=== PATIENT | female | born 1990 | race Caucasian/White ===

== ENCOUNTER 2024-09-28 12:12 | Outpatient (CLI) | payer MEDICAID, SELFPAY ==
--- NOTE | 2024-09-28 12:15 | CRLHL7_ITS ---
For Patients: As a result of the Century Cures Act, medical imaging exams and procedure reports are released immediately into your electronic medical record. You may view this report before your referring provider. If you have questions, please contact your health care provider. INDICATION: dating and viability COMPARISON: none TECHNIQUE: Real time hernandez scale imaging of the fetus was performed. FINDINGS: Sonographic imaging demonstrates a single living intrauterine gestation. Fetus demonstrates a regular cardiac rate of 139 beats per minute. Fetus has a variable position. The placenta lies posteriorly. Amniotic fluid volume appears normal. Single deepest vertical pocket: 4.5 cm. The composite ultrasound gestational age is calculated at 17 weeks 0 days with an estimated sonographic due date of 03/08/2025. The estimated weight is 177 grams which lies at the 43rd %. The following biometric measurements were obtained: Biparietal diameter: 3.6 cm/17 weeks 0 days 46th% Head circumference: 13.3 cm/16 weeks 6 days 33rd% Abdominal circumference: 11.1 cm/17 weeks 0 days 48th% Femur length: 2.3 cm/17 weeks 0 days 47th% The HC/AC ratio measures: 1.20 range (1.07-1.29) IMPRESSION: Sonographic gestational age 17 weeks 0 days and a sonographic due date 03/08/2025. Dictated by Yossi Lawson MD @ 09/30/2024 6:43:46 AM (Electronically Signed)
== END 2024-09-28 12:13 | disposition home or self-care (01) ==
LOC: US 12:14
PROVIDERS: PCP Registered Nurse; Visit Provider Registered Nurse
DX: Z34.92 Encounter for supervision of normal pregnancy, unspecified, second trimester (principal); Z3A.17 17 weeks gestation of pregnancy
CPT/HCPCS: 76815; 80306; 83021; 86592; 86593; 86703; 86704; 86706; 86762; 86780; 86787; 86803; 86850; 86900; 86901; 87086; 87340; 87491; 87591

== ENCOUNTER 2024-10-19 12:07 | Outpatient (CLI) | payer MEDICAID, SELFPAY ==
--- NOTE | 2024-10-19 12:15 | CRLHL7_ITS ---
For Patients: As a result of the Century Cures Act, medical imaging exams and procedure reports are released immediately into your electronic medical record. You may view this report before your referring provider. If you have questions, please contact your health care provider. OB ULTRASOUND LMP: 06/01/2024. MAYE by LMP: 03/08/2025. GA: 20 w, 0 d. INDICATION: anatomy. TECHNIQUE: Real time grayscale imaging of the fetus was performed. Evaluate anatomy. Transabdominal and transvaginal. position: Multiple positions. Cervix: Visualized. Technique: Transabdominal, thought best visualized transvaginal. Length of closed cervix: 6.0 cm. Placenta/cord: Posterior. Technique: Transvaginal. Placenta tip to internal OS: 1.1 cm. Umbilical Cord: 3-vessel cord. Placenta insertion: Central. Amniotic Fluid: 5.0 cm SDP (greater than/equal to: 2- less than 8 cm). SURVEY: Observed Structures. Calvarium/Spine: Cerebellum: 2.1 cm, 20 w 6 d. Cisterna Magna: 3.1 mm. Nuchal Fold: 3.0 mm. Lateral Ventricle: 4.6 mm. CSP: Yes. Midline Falx: Yes. Choroid Plexus: Yes. Spine: Yes. Abdomen: Stomach: Yes. Abd Cord Insertion: Yes. Urinary Bladder: Yes. Kidneys: Yes. Diaphragm: Yes. Face: Nose/lips: Yes. Orbital view: Yes. Profile: Yes. Limbs: Upper Extremities: Yes. Lower Extremities: Yes. Hands: Yes. Feet: Yes. Vascular: 4-Chamber Heart: Yes. LVOT: Yes. RVOT: Yes. 3VV: Yes. 3VTV: Yes. BPD: 4.6 cm. 19 w, 6 d, 44.5 percent. HC: 17.0 cm. 19 w, 4 d, 24.8 percent. AC: 14.8 cm. 20 w, 0 d, 45.6 percent. FL: 3.3 cm. 20 w, 1 d, 50.0 percent. FL/AC ratio: 22.15 percent. HC/AC ratio: 1.15. heart rate: 145 bpm. age by this US: 20 w, 1 d. MAYE by this US: 03/07/2025. EFW: 329.78 g. Weight: 0 lbs, 12 oz. Percentile by MAYE: 48.9 percent. IMPRESSION: 1. Concordance of clinical and sonographic dating. 2. Incomplete evaluation of situs. Remainder of the anatomic survey is normal. Short-term follow-up recommended. 3. The posterior placental edge is located 1.1 cm from the internal cervical os with transvaginal imaging. Third trimester follow-up recommended. Yossi Lawson M.D. Diagnostic Radiologist [email or web address] JOYA/[email or web address] nunn/Dictated by: Yossi Lawson MD @ 10/19/2024 1:38:00 PM (Electronically Signed)
== END 2024-10-19 12:08 | disposition home or self-care (01) ==
LOC: US 12:07
PROVIDERS: PCP Registered Nurse; Visit Provider Registered Nurse
DX: Z34.92 Encounter for supervision of normal pregnancy, unspecified, second trimester (principal); Z3A.20 20 weeks gestation of pregnancy
CPT/HCPCS: 76805; 76817

== ENCOUNTER 2024-12-14 10:05 | Outpatient (CLI) | payer BC, SELFPAY ==
--- NOTE | 2024-12-14 10:15 | CRLHL7_ITS ---
For Patients: As a result of the Century Cures Act, medical imaging exams and procedure reports are released immediately into your electronic medical record. You may view this report before your referring provider. If you have questions, please contact your health care provider. OB ULTRASOUND MAYE by LMP: 03/08/2025. GA: 28 w, 0 d. Single. Comparison: 10/19/2024, 09/28/2024. INDICATION: Low-lying placenta. Situs. Growth. TECHNIQUE: Real time grayscale imaging of the fetus was performed. Transabdominal. CERVIX: Visualized. Measurement: 3.6 cm. POSITIONING: Vertex. AMNIOTIC FLUID: 4.8 cm. SDP (N: greater than 2 x 1 cm) PLACENTA: Technique: Transabdominal. PLACENTA POSITION: Posterior. DOPPLER: heart rate: 144 bpm. BIOMETRY: BPD: 7.0 cm. 28 w, 1 d, 44.6 percent. HC: 25.7 cm. 28 w, 0 d, 19.0 percent. AC: 24.6 cm. 28 w, 6 d, 67.4 percent. FL: 5.4 cm. 28 w, 3 d, 48.6 percent. FL/AC ratio: 21.86 percent. HC/AC ratio: 1.05. EFW: 1248 g. Weight: 2 lbs, 12 oz. age by this US: 28 w, 3 d. MAYE by this US: 03/05/2025. Percentile by MAYE: 59.6 percent. IMPRESSION: 1. Sonographic gestational age 28 weeks 3 days and sonographic due date 03/05/2025. Good correlation with dates. Normal interval growth. 2. Estimated weight 60th percentile. Abdominal circumference 67th percentile. 3. Posterior placenta edge is located more than 10 cm from the internal cervical os. Yossi Lawson M.D. Diagnostic Radiologist [email or web address] JOYA/[email or web address] nunn/Dictated by: Yossi Lawson MD @ 12/14/2024 1:02:00 PM (Electronically Signed)
== END 2024-12-14 10:06 | disposition home or self-care (01) ==
LOC: US 10:06
PROVIDERS: PCP Registered Nurse; Visit Provider Advanced Practice Midwife
DX: O44.43 Low lying placenta NOS or without hemorrhage, third trimester (principal); Z3A.28 28 weeks gestation of pregnancy
CPT/HCPCS: 76816; 86592

== ENCOUNTER 2025-01-28 12:22 | Outpatient (CLI) | payer BC, SELFPAY ==
--- NOTE | 2025-01-28 12:15 | CRLHL7_ITS ---
For Patients: As a result of the Century Cures Act, medical imaging exams and procedure reports are released immediately into your electronic medical record. You may view this report before your referring provider. If you have questions, please contact your health care provider. OB ULTRASOUND FOLLOW-UP/LIMITED, 01/28/2025 CLINICAL HISTORY: Follow-up growth. COMPARISON: 12/14/2024, 10/19/2024. TECHNIQUE: Real time hernandez scale imaging of the fetus was performed. Transabdominal imaging performed. FINDINGS: LMP: 06/01/2024. MAYE by LMP: 03/08/2025. GA: 34 weeks 3 days. Gestation: Single. Cervix: Not visualized. Positioning: Vertex. Amniotic Fluid: 5.4 cm SDP. Placenta: Technique: TA. Placenta position: Posterior. Dopplers: heart rate: 137 bpm. BIOMETRY: BPD: 8.9 cm, 36 weeks 0 days. 88% HC: 31.8 cm, 35 weeks 6 days. 50% AC: 31.3 cm, 35 weeks 1 day. 77% FL: 6.5 cm, 33 weeks 4 days. 20% FL/AC Ratio: 20.82% HC/AC Ratio: 1.02. EFW: 2546 grams, 5 lb 10 oz. age by this US: 35 weeks 1 day. MAYE by this US: 03/03/2025. Percentile by MAYE: 60% IMPRESSION: 1. Sonographic gestational age 35 weeks 1 day and sonographic due date 03/03/2025. Good correlation with dates. Normal interval growth. 2. Estimated weight 60th percentile. Abdominal circumference 77th percentile. Yossi Lawson M.D. Diagnostic Radiologist [email or web address] Transcribed: 3:25 pm DW/Dictated by: Yossi Lawson MD @ 01/28/2025 2:24:00 PM (Electronically Signed)
--- OUTSIDE RECORDS SUMMARY | 2025-01-29 01:27 | XMS_ITS | Clinical Summary ---
Author Organization [facility] Address [address] [place] [id number] Care Team Providers Care Case Resource Manager Name Role Phone No Ref-Primary, Physician Primary Care Provider No Ref-Primary, Physician Unavailable [phone] Allergies No known active allergies Medications hydrocortisone (CORTAID) 1 % cream Apply topically 2 times daily 30 g 0 5 Active diphenhydrAMINE (BENADRYL) 25 MG tablet Take 1-2 tablets (25-50 mg) by mouth every 6 hours as needed for itching 30 tablet 0 5 Active calamine lotion Apply topically as needed for itching 75 mL 1 5 Active Vit-Fe Fumarate-FA ( MULTIVITAMIN W/IRON) 27-0.8 MG tablet Take 1 tablet by mouth daily Active oxyCODONE (ROXICODONE) 5 MG tablet Take 1 tablet (5 mg) by mouth every 6 hours as needed for severe pain 10 tablet 2 Active Active Problems Problem Noted Date Diagnosed Date Encounter for triage in patient 022 Appendicitis 09/24/2014 (spontaneous vaginal delivery) 06/22/2014 Flu 06/21/2014 Indication for care in labor or delivery 014 Group B Streptococcus sweetie r, +RV culture, currently 06/20/2014 Supervision of normal first 01/04/2014 Social History Tobacco Use Types Packs/Day Years Used Date Smoking Tobacco: Never Smokeless Tobacco: Never Alcohol Use Standard Drinks/Week Comments No 0 (1 standard drink = 0.6 oz pur e alcohol) Adolescent Education Answer Date Record ed Getting School Help Needed Not on file 04/29 Comments No Sex and Gender Information Value Date Recorded Sex Assigned at Not on file 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 Gender Identity Not on file Sexual Orientation Not on file Occupation Industry Job Start Date Job End Date Not on file Not on file Not on file Not on file Last Filed Vital Signs Vital Sign Reading Time Taken Comments Blood Pressure 130/81 04/13/2022 11:35 PM CDT Pulse 68 04/13/2022 11:35 PM CDT Temperature 36.4 C (97.5 F) 04/13/2022 11:35 PM CDT Respiratory Rate 18 04/13/2022 11:35 PM CDT Oxygen Saturation 97% 04/13/2022 11:35 PM CDT Inhaled Oxygen Concentration - - Weight 117 kg (258 lb) 04/13/2022 11:35 PM CDT Height 165.1 cm (5' 5) 11/09/2021 1:08 PM CDT Body Mass Index 42.93 11/09/2021 1:08 PM CDT Plan of Treatment Health Maintenance Due Date Last Done Comments ADVANCE CARE PLANNING 1992 ANNUAL REVIEW OF HM ORDERS 1992 YEARLY PREVENTIVE VISIT 11/22/1995 HEPATITIS C SCREENING 2010 HEPATITIS B VACCINE (1 of 3 - 19+ 3-dose series) 11/22/2011 DTAP/TDAP/TD VACCINE (2 - Td or Tdap) 11/23/2015 11/22/2005 PAP 12/07/2016 12/07/2013 COVID-19 VACCINE (1 - 2023-2 5 season) 2024 PHQ-2 (once per calendar year) 2024 INFLUENZA VACCINE (Season Ended) 2025 ZOSTER VACCINE (1 of 2) 2042 HIV SCREENING Completed 11/13/2013 HPV VACCINE Aged Out No longer eligi ble based on patient's age to complete this topic MENINGITIS VACCINE Aged Out No longer eligible based on patient's age to complete this topic PNEUMOCOCCAL VACCINE: PEDIAT RICS (0 to 5 YEARS) AND AT-RISK PATIENTS (6 to 49 YEARS) Aged Out No longer eligi ble based on patient's age to complete this topic Procedures Procedure Name Priority Date/Time Associated Diagnosis Comments PAP IMAGED THIN LAYER SCREEN Routine 12/07/2013 12:00 AM CDT Routine gynecological examination Supervision of normal first , first trimester HIV ANTIGEN ANTIBODY COMBO Routine 11/13/2013 11:57 AM CDT Supervision of normal first , unspecified trimester from Last 3 Months or Most Recently Relevant to Health Maintenance Results * PAP imaged thin layer, screen (12/07/2013 12:00 AM CDT) PAP SAM Cho Report Patient Name: ABI GUAMAN MR#: [id number] Specimen #: [id number] Collected: 12/07/2013 Received: 12/10/2013 Reported: 12/11/2013 11:40 Ordering Phy(s): HERBIE JENKINS SPECIMEN/STAIN PROCESS: Pap imaged thin layer prep screening (Surepath, FocalPoint with guided screening) Pap-Cyto x 1, Reflex HPV if ASCUS/LSIL x 1 SOURCE: Cervical Pap imaged thin layer prep screening (Surepath, FocalPoint with guided screening) SPECIMEN ADEQUACY: Satisfactory for evaluation. -Transformation zone component absent. CYTOLOGIC INTERPRETATION: Negative for Intraepithelial Lesion or Malignancy Electronically signed out by: DWAYNE Childs (ASCP) Processed and screened at [facility], [facility] CLINICAL HISTORY: LMP: 09/19/13 , Papanicolaou Test Limitations: Cervical cytology is a screening test with limited sensitivity; regular screening is critical for cancer prevention; Pap tests are primarily effective for the diagnosis/preventi on of squamous cell carcinoma, not adenocarcinomas or other cancers. TESTING LAB LOCATION: [address] [address] COLLECTION SITE: Client: [facility] Location: [facility] (R) Cytologic material (specimen) 12/07/2013 12/10/2013 10:41 AM CDT us Herbie Jenkins MD LAB - OPTIME CLINICAL SPECI MEN Final Result COPATH * HIV Antigen Antibody Combo (11/13/2013 11:57 AM CDT) HIV Antigen Antibody Combo Nonreactive HIV-1 p24 Ag & HIV-1/HIV-2 Ab Not Detected NR [facility] Blood specimen (specimen) 11/13/2013 11:57 AM CDT 11/13/2013 12:02 PM CDT us Herbie Jenkins MD LAB - BLOOD ORDERABLES Tiffany l Result Performing Organization Address City/[facility]/ZIP Co de Phone Number [facility] [address] [place] [address] from Last 3 Months or Most Recently Relevant to Health Maintenance Insurance [facility] Advance Directives For more information, please contact: [phone] * Full Code (Latest Code Status on File) Date Activated Date Inactivated Comments 09/24/2014 3:44 AM 09/24/2014 4:12 PM Care Teams Case Resource Manager Relationship Specialty Start Date End Date No Ref-Primary, Physician PCP - General 04/14/22 No Ref-Primary, Physician 04/14/22
--- OUTSIDE RECORDS SUMMARY | 2025-01-29 01:27 | XMS_ITS | Clinical Summary ---
Author Organization [facility] Address [address] [address] Care Team Providers Care Pulpwood Contractor Name Role Phone Unavailable Primary Care Provider Unavailabl e Source Comments You are receiving this document as you are listed as the primary care provider,follow-up provider, or the patient has been referred to you for consultation.This is in compliance with the Medicare and[facility] EHR Incentive Program,which states Providers who transition their patient to another setting of careor provider of care or refers their patient to another provider of care shouldprovide summary care record for each transition of care or referral. 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 Gender Identity Not on file Sexual Orientation Not on file Last Filed Vital Signs Vital Sign Reading Time Taken Comments Blood Pressure 114/64 09/12/2018 10:08 AM LIVESTOCK LABORER Pulse 65 09/12/2018 10:08 AM LIVESTOCK LABORER Temperature - - Respiratory Rate - - Oxygen Saturation - - Inhaled Oxygen Concentration - - Weight - - Height - - Body Mass Index - - Plan of Treatment Health Maintenance Due Date Last Done Comments Cervical Cancer Screening Due 1992 Hep C Screening (Preventive Services) 1992 HIV Screening (Preventive Services) 2008 Adult Preventive Visit 2010 DTaP/Tdap/Td Vaccine (1 - Tdap) 11/22/2011 HepB Vaccine (1) 11/22/2011 COVID-19 Vaccine ( - 2023-2 5 season) 2024 Influenza Vaccine (Season Ended) 2025 Zoster/Shingles Vaccine (1 of 2) 2042 HPV Vaccine Aged Out No longer eligi ble based on patient's age to complete this topic HepA Vaccine Aged Out No longer eligi ble based on patient's age to complete this topic Hib Vaccine Aged Out No longer eligi ble based on patient's age to complete this topic IPV (Polio) Vaccine Aged Out No longe r eligible based on patient's age to complete this topic MCV4 Vaccine Aged Out No longer eligi ble based on patient's age to complete this topic Meningococcal B Vaccine Aged Out No l onger eligible based on patient's age to complete this topic Pneumococcal Vaccine Aged Out No long er eligible based on patient's age to complete this topic Insurance [employer]ED [employer]
--- OUTSIDE RECORDS SUMMARY | 2025-01-29 01:27 | XMS_ITS | Clinical Summary ---
Author Organization [facility] Address [address] [place] [address] Care Team Providers Care Schedule Checker Name Role Phone Pcp, No Primary Care Provider Unavailabl e Allergies Active Allergy Reactions Criticality Noted Date Comments Tuberculin Ppd Edema 05/10/2016 Medications methylPREDNISolo ne (MEDROL, GARIMA,) 4 mg tabletIndication s:Benign positional vertigo, unspecified laterality Take by mouth as instructed per packaging. 1 Package 1 6 Active cephalexin (KEFLEX) 500 mg capsule TAKE 1 CAPSULE BY MOUTH THREE TIMES A DAY 2 Active ibuprofen (ADVIL; MOTRIN) 600 mg tablet Take 600 mg by mouth every 6 hours if needed. 2 Active Active Problems No known active problems Immunizations Immunization Administration Dates Next Due Tdap 11/22/2005 Family History Medical History Relation Name Comments Good Health Brother 1 Good Health Brother 2 Good Health Father Good Health Mother Good Health Sister 1 Good Health Sister 2 Good Health Sister 3 Relation Name Status Comments Brother 1 Brother 2 Father Alive Mother Alive Sister 1 Sister 2 Sister 3 Social History Tobacco Use Types Packs/Day Years Used Date Smoking Tobacco: Never Smokeless Tobacco: Never Alcohol Use Standard Drinks/Week Comments Yes 0 (1 standard drink = 0.6 oz pur e alcohol) Social Connections Answer Date Recorded Frequency of Communication with Friends and Fami ly Not on file 02/09/2022 Comments No Sex and Gender Information Value Date Recorded Sex Assigned at Not on file Legal Sex Female 2:17 PM CDT Gender Identity Not on file Sexual Orientation Not on file Obstetrics History Last Filed Vital Signs Vital Sign Reading Time Taken Comments Blood Pressure 121/79 02/05/2022 5:05 PM CDT Pulse 96 02/05/2022 5:05 PM CDT Temperature 37 C (98.6 F) 02/05/2022 5:05 PM CDT Respiratory Rate - - Oxygen Saturation - - Inhaled Oxygen Concentration - - Weight 96.2 kg (212 lb) 05/10/2016 10:10 AM CDT Height 167.6 cm (5' 5.98) 05/10/2016 10:10 AM C DT Body Mass Index 34.23 05/10/2016 10:10 AM CDT Plan of Treatment Health Maintenance Due Date Last Done Comments HIV for age 15-65 11/22/2007 Hepatitis C screening for ag e 18-79 2010 Hepatitis B series for 19+ ( 1 of 3 - 19+ 3-dose series) 11/22/2011 Tetanus booster 11/23/2015 11/22/2005 BMI (ht and wt on same day) for age 18+ 05/10/2017 05/10/2016 Depression screening for age 12+ 05/10/2017 05/10/2016 COVID-19 vaccine series ( season) 2024 Pap test for age 21-65 09/11/2024 2, 09/11/2021 Influenza Vaccine (Season Ended) 2025 Tdap Completed 11/22/2005 Pneumococcal series for age 6-49 Aged Out No longer eligible b ased on patient's age to complete this topic Procedures Procedure Name Priority Date/Time Associated Diagnosis Comments APPRENTICE ARCHITECT THIN PREP PAP SCREEN IMAGED Routine 09/11/2021 4:00 PM LOADING MANAGER from Last 3 Months or Most Recently Relevant to Health Maintenance Results * APPRENTICE ARCHITECT THIN PREP PAP SCREEN IMAGED (09/11/2021 4:00 PM LOADING MANAGER) Case Report Gynecologic Cytology Report Case: [id number] Authorizing Provider: Destini Bah NP Collected: 09/11/2021 1600 Ordering Location: [facility] Received: 09/15/2021 0803 First Screen: Karen Gongora Specimen: APPRENTICE ARCHITECT ThinPrep Vial Screening, Cervical/Vaginal 09/21/2021 12:58 PM LOADING MANAGER [facility] INTERPRETATION/ RESULT NEGATIVE FOR INTRAEPITHELIAL LESION OR MALIGNANCY (NIL) (none) 09/21/2021 12:[address] [facility] at 1258 LOADING MANAGER ORGANISM(S) Shift in billie suggestive of bacterial vaginosis 09/21/2021 12:58 PM LOADING MANAGER [facility] SPECIMEN ADEQUACY Satisfactory for evaluation No endocervical component seen in a patient 09/21/2021 12:58 PM LOADING MANAGER [facility] HPV REQUEST HPV and PAP 09/21/2021 12:58 PM LOADING MANAGER [facility] Date of LMP 09/21/2021 12:58 PM LOADING MANAGER [facility] Comment:Unknown Last Pap Date 09/21/2021 12:58 PM LOADING MANAGER [facility] Comment:Unknown Menstrual Status 09/21/2021 12:58 PM LOADING MANAGER [facility] Additional Information 09/21/2021 12:58 PM LOADING MANAGER [facility] Comment: Interpreted at [facility] - [address] [facility] [address], [place] [address] Automated Review Successful 09/21/2021 12:[address] [facility] Comment:Specimen processed s uccessfully by automated music executive device, ThinPrep Imaging System, [employer] ANCILLARY TESTING APPRENTICE ARCHITECT HPV Ordered, Please see separate report 09/21/2021 12:58 PM [facility] Note The pap test is a screening technique, not a diagnostic procedure. It is used primarily to screen for squamous cancers and precursor lesions. Published studies have shown that it is subject to both false negative and false positive results. The pap test should not be used as the sole means to diagnose or exclude pre-malignant and malignant lesions. 09/21/2021 12:58 PM [facility] Other (Cervical/Vagina l) 09/11/2021 4:00 PM LOADING MANAGER 09/15/2021 8:03 AM LOADING MANAGER Destini Bah NP PATHOLOGY/CYTOLOGY Final Result [facility] [address] [place] [address], from Last 3 Months or Most Recently Relevant to Health Maintenance Insurance [facility] Care Teams Schedule Checker Relationship Specialty Start Date End Date Pcp, No . PCP - General 10/24/13
== END 2025-01-28 12:23 | disposition home or self-care (01) ==
LOC: US 12:23
PROVIDERS: PCP Registered Nurse; Visit Provider Advanced Practice Midwife
DX: O99.213 Obesity complicating pregnancy, third trimester (principal); Z3A.34 34 weeks gestation of pregnancy
CPT/HCPCS: 76816

== ENCOUNTER 2025-02-13 13:44 | Outpatient (CLI) | payer BC, SELFPAY | END 2025-02-13 13:45 | disposition home or self-care (01) | LOC: NFLDREF 02-17 07:28 | PROVIDERS: PCP Registered Nurse; Referring Provider Registered Nurse; Visit Provider Midwife | DX: Z34.93 Encounter for supervision of normal pregnancy, unspecified, third trimester (principal); Z3A.36 36 weeks gestation of pregnancy | CPT/HCPCS: 87081; 87653 ==

== ENCOUNTER 2025-02-27 10:08 | Outpatient (CLI) | payer BC, SELFPAY ==
--- NOTE | 2025-02-27 10:15 | CRLHL7_ITS ---
For Patients: As a result of the Century Cures Act, medical imaging exams and procedure reports are released immediately into your electronic medical record. You may view this report before your referring provider. If you have questions, please contact your health care provider. INDICATION: Third trimester growth check. Obesity. TECHNIQUE: Ultrasound OB pelvis transabdominal. Real-time hernandez-scale imaging of the fetus was performed without stress testing. COMPARISON: 12/14/2024 FINDINGS: Sonographic imaging demonstrates a single living intrauterine gestation. Fetus demonstrates a regular cardiac rate of 137 beats per minute. Fetus has a cephalic orientation. Placenta is posterior. Biometric measurements: Biparietal diameter: 36 weeks 0 days. Head circumference: 35 weeks 6 days. Abdominal circumference: 35 weeks 1 day. Femur length: 33 weeks 4 days. Estimated weight: 2546, 59 %. Estimated ultrasound age by today`s measurements is 35 weeks 1 day with an estimated date of delivery March 03, 2025. Amniotic fluid volume appears normal with the deepest pocket of 5 cm. breathing movements, motion, and tone were all observed. IMPRESSION: Single viable intrauterine with a biophysical profile 8. Adequate interval growth has been demonstrated. Dictated by Obey Beth MD @ 03/04/2025 6:32:47 AM (Electronically Signed)
== END 2025-02-27 10:09 | disposition home or self-care (01) ==
LOC: US 10:08
PROVIDERS: PCP Registered Nurse; Visit Provider Advanced Practice Midwife
DX: O99.213 Obesity complicating pregnancy, third trimester (principal); Z3A.35 35 weeks gestation of pregnancy
CPT/HCPCS: 76819

== ENCOUNTER 2025-03-03 07:23 | Inpatient (IN) | payer BC, SELFPAY ==
[2025-03-03] VITALS (20 sets, daily range): BP systolic 109–130; BP diastolic 58–79; PULSE 68–96; RESP 14–18; TEMP 36.5–37; O2SAT 94–97; BMI 45.1
[2025-03-03] MEDS: AMPICILLIN 2 GM in 0.9 % SODIUM CHLORIDE Mini-bag 100 ML IVPB (08:04)
[2025-03-03] MEDS: LACTATED RINGERS 1000 ML 1,000 ML 125 ML IV (08:05)
[2025-03-03 08:12] LABS: Hematocrit* 32.7 % (33.0-51.0); Hemoglobin* 10.5 gm/dL (12.0-16.0); Immature Granulocytes Abs Auto 0.10 K/uL (0.00-0.30); Immature Granulocytes Pct Auto 1.3 %; Lymphocytes Absolute Auto 1.87 K/uL (0.90-2.90); Mean Corpuscular HGB Conc 32 gm/dL (32-36); Mean Corpuscular Hemoglobin 27 pg (26-34); Mean Corpuscular Volume 85 fL (80-100); RDW Coefficient of Variation % 13.5 % (11.5-15.5); Red Blood Count* 3.84 m/uL (4.00-5.20); White Blood Count* 7.99 K/uL (4.50-11.00)
[2025-03-03 08:14] LABS: Slide Review Reflex No
--- NOTE | 2025-03-03 10:39 | W.PM.LDBA ---
Subjective History of Present Illness Date Seen: 03/03/25 Narrative: Patient is being admitted to Labor and Delivery for elective IOL. She is a 34 year old at 39 2/7 weeks gestation. Her full history and physical was dictated by Stephanie GARCIA on 02/20/2025. Please see this for details. She is supported by [place] in the room. Good movement. No vaginal bleeding, leaking of fluid, or cramping. Specific Issues/Plans Patient goes by: Oliva Winkler 4 P 3003 : [place] Hep B indeterminate, confirm vaccinated at 24 week visit H&P done for labor admit 02/20/2025 by Gladis Ayala CNM # RPR positive with 1:1 titer. TPPA nonreactive = likely biological false positive, but could be a very early new case. Repeat TP-PA negative at 28wks=syphilis negative # BMI 39.6 Growth at 28wks: 60% Growth US at 32 weeks: scheduled for 34 wks Weekly testing starting at 37 weeks: testing worksheet completed 01/09/25 Consider elective delivery at week 39 #Late to care due to lack of medical insurance. 1st OB at 17 weeks. Utox: declined # H/o precipitous . RN delivered last baby in hospital bathroom. Last delivery occurred within 3 hours of ROM. [place] she wasn't listened to when she informed nurse that she delivers quickly. Very anxious about this and risk of car/home , consider reviewing this close to due date # PP hemorrhage w/ last delivery # Placenta Previa or Low-Lying Placenta, 1.1 cm from internal os Resolved (10.1cm from OS) Follow up transvaginal ultrasound at 28-32 weeks ? #Missing evaluation of situs of anatomy (position of organs). Normal. Recommend follow-up, short term: Normal situs (see US addendum) # GBS +-unsure if will treat H&P: [] Imagin10/19/2024 Anatomy US: IMPRESSION: 1. Concordance of clinical and sonographic dating. 2. Incomplete evaluation of situs. Remainder of the anatomic survey is normal. Short-term follow-up recommended. 3. The posterior placental edge is located 1.1 cm from the internal cervical os with transvaginal imaging. Third trimester follow-up recommended. Vaccinations: Flu: Recommended, declines Covid: Recommended, declines Tdap: offered at 32 weeks, patient would like to do research, ask again RSV: [] 32 week mental health: [] Last pap: September 2021 normal, negative HPV OB - Problem Based A/P Additional Plan (1) : Status: Acute (2) Encounter for elective induction of labor: Status: Acute (3) Obesity (BMI 30-39.9): Status: Acute Plan ASSESSMENT:?? 34 at 39 2/7 weeks gestation?? complicated by:??elevated BMI, late onset of care due to insurance issues Labor type: elective induced, early labor?? Category 1 FHR pattern.??? Labor complicated by:none GBS positive? PLAN:?? 1. Routine intrapartum cares as ordered. Options for ?induction reviewed. AROM is not currently an options due to risk for cord prolapse. Pt agrees to pitocin titration per protocol. 2. Monitoring per policy, intermittent?? 3. Planning unmedicated . Desires water . Consent signed. Hep C negative. Candidate for analgesia of choice.??? 4. Patient encouraged to reposition and ambulate to promote physiologic labor and .?? 5. GBS prophylaxis initiated for GBS positive status. Will treat with antibiotics per protocol.? 6. Anticipate ? OB Exam Physical Exam Vital signs: Temp Pulse Resp BP 98.6 F 70 14 125/74 03/03/25 07:40 03/03/25 09:45 03/03/25 07:40 03/03/25 07:40 Narrative: Vitals Reviewed Constitutional:? Alert and oriented x3 HEENT:? Normocephalic, atraumatic Neck:? Supple Lungs:? Clear to auscultation bilaterally Heart:? Regular rate and rhythm, no murmur, rub or gallop Abdomen:? Soft, nontender, and gravid. Vertex by Odin's, confirmed with cervical exam. Extremities:? No edema or erythema Cervix: 3 cm/50%/-3 station/vertex with palpable sutures, head ballotable NST: 130 bpm/moderate variability/accelerations present/decelerations absent/contractions none
[2025-03-03] MEDS: OXYTOCIN 30 unit/500 ML in NS 30 UNIT/500 ML BAG IVPB (11:07)
[2025-03-03] MEDS: AMPICILLIN 1 GM in 0.9 % SODIUM CHLORIDE Mini-bag 100 ML IVPB ×2 (12:37→16:29)
--- NOTE | 2025-03-03 15:10 | P.OBPN_ITS ---
Subjective Time Seen by Provider: 15:00 Date Seen: 03/03/25 Narrative: Patient was being admitted to Labor and Delivery for elective IOL. She is a 34 year old at 39 2/7 weeks gestation. She has been on pitocin and just starting to feel some cramping low and in front. No LOF. Good FM. No vaginal bleeding. Specific Issues/Plans Patient goes by: Oliva Winkler 4 P 3003 : [place] Hep B indeterminate, confirm vaccinated at 24 week visit H&P done for labor admit 02/20/2025 by Gladis Ayala CNM # RPR positive with 1:1 titer. TPPA nonreactive = likely biological false positive, but could be a very early new case. Repeat TP-PA negative at 28wks=syphilis negative # BMI 39.6 Growth at 28wks: 60% Growth US at 32 weeks: scheduled for 34 wks Weekly testing starting at 37 weeks: testing worksheet completed 01/09/25 Consider elective delivery at week 39 #Late to care due to lack of medical insurance. 1st OB at 17 weeks. Utox: declined # H/o precipitous . RN delivered last baby in hospital bathroom. Last delivery occurred within 3 hours of ROM. [place] she wasn't listened to when she informed nurse that she delivers quickly. Very anxious about this and risk of car/home , consider reviewing this close to due date # PP hemorrhage w/ last delivery # Placenta Previa or Low-Lying Placenta, 1.1 cm from internal os Resolved (10.1cm from OS) Follow up transvaginal ultrasound at 28-32 weeks ? #Missing evaluation of situs of anatomy (position of organs). Normal. Recommend follow-up, short term: Normal situs (see US addendum) # GBS +-unsure if will treat H&P: [] Imagin10/19/2024 Anatomy US: IMPRESSION: 1. Concordance of clinical and sonographic dating. 2. Incomplete evaluation of situs. Remainder of the anatomic survey is normal. Short-term follow-up recommended. 3. The posterior placental edge is located 1.1 cm from the internal cervical os with transvaginal imaging. Third trimester follow-up recommended. Vaccinations: Flu: Recommended, declines Covid: Recommended, declines Tdap: offered at 32 weeks, patient would like to do research, ask again RSV: [] 32 week mental health: [] Last pap: September 2021 normal, negative HPV Objective Exam: Objective: Constitutional: Alert and oriented x3, no distress, coping well Vital signs stable, see nurse documentation Abdomen: gravid, contractions palpate mild with contractions and soft between Cervix: 4 cm/75%/0 station/vertex with palpable sutures. Head well applied to ce rvix and engaged, not ballotable. AROM with consent, clear fluid, copious amount. NST: 120 bpm/moderate variability/accelerations present/decelerations absent/contractions q 1-3 min with some clustering in between prior to AROM Vital Signs: Last Vital Signs Temp 97.7 F 03/03/25 14:57 Pulse 84 03/03/25 14:57 Resp 14 03/03/25 12:35 BP 118/72 03/03/25 14:57 Pulse Ox 94 03/03/25 14:57 Plan Plan: ASSESSMENT:?? 34 at 39 2/7 weeks gestation?? complicated by:??elevated BMI, late onset of care due to insurance issues Labor type: elective induced, early labor?? Category 1 FHR pattern.??? Labor complicated by:none GBS positive? PLAN:?? 1. Routine intrapartum cares as ordered. Continue pitocin titration as indicated after AROM. 2. Monitoring per policy, intermittent?? 3. Planning unmedicated . Desires water . Consent signed. Hep C negative. Candidate for analgesia of choice.??? 4. Patient encouraged to reposition and ambulate to promote physiologic labor and .?? 5. GBS prophylaxis initiated for GBS positive status. Will treat with antibiotics per protocol.? 6. Anticipate ?
--- NOTE | 2025-03-03 19:25 | W.PM.VAGDE_ITS ---
OB Procedure Vag Delivery Mother Details Mother Details: The patient is a 34 year-old, 4, Para 3, admitted on 03/03/25 at 39 2/7 Days gestation. Weeks Gestation: 39.2 Admission Date: 03/03/25 Additional Details Amniotic Membrane Status: AROM Amniotic Membrane Rupture Date: 03/03/25 Amniotic Membrane Rupture Time: 15:03 Amniotic Membrane Fluid Description: Clear Analgesia/Anesthesia Type: None Waterbirth: Yes Pitcoin: Yes Intrapartal Events: None Induction Method: per pitocin protocol and AROM Labor Onset: 15:13 Complete: 18:48 Pushin:48 Heart: Category 2 with deep variables, moderate variability through out and rapid descent. Delivery Details Delivery Date: 03/03/25 Delivery Time: 18:50 Route of delivery: Infant Gender: Male Infant Viability: Alive; Heart Rate Present Position at Delivery: OP Delivery Details: Patient was admitted for elective IOL and progressed with pitocin and ARoM. AROM noted at 1503 with clear fluid. Patient was complete at 1848 and pushing at 1848. of a viable male at 1850 in sitting position in the tub. Vertex de livered straight OP. Nuchal cord x 2. Released after head breached the water carefully. Baby did take a gulp of water but drank it immediately and began vigorous crying. Body delivered easily without shoulder dystocia and without incident. Baby handed to dad to bring to his mum.Infant passed to mothers chest with a vigorous cry. Cord was clamped and cut at > 10 minutes. APGARS were 9 at one minute and 9 at five minutes respectively. Intact placenta with a 3 vessel cord delivered spontaneously at 1904. Fundus firm. No laceration identified. QBL 395 cc. Mother and baby stable; mother plans to breastfeed. Infant weight pending.? 1 Minute Interval Total Score: 9 5 Minute Interval Total Score: 9 Additional Details Shoulder Dystocia: No Placenta Delivery Time: 19:04 Placental Delivery Description: Spontaneous Procedure Done: Global Blood Loss: 395 Laceration: None Blood Loss Measurement Type: QBL Bakri Used: No Sponge/Need Count Correct: Yes Cord Vessel Description: 3 Vessels and Tight (x2) Event Summary Status: Mother and infant were stable after delivery. Disposition: floor
[2025-03-03] MEDS: miSOPROStoL 800 MCG/4 TABLET PR (19:59)
[2025-03-03] MEDS: OXYTOCIN 30 unit/500 ML in NS 30 UNIT/500 ML BAG 300 UNIT IVPB (21:23)
[2025-03-03] MEDS: METHYLERGONOVINE MALEATE 0.2 MG TABLET PO (21:26)
[2025-03-03] MEDS: IBUPROFEN 600 MG TABLET PO (21:45)
[2025-03-04 00:08] VITALS: BP 105/67; PULSE 78; RESP 16; TEMP 37; O2SAT 96
[2025-03-04 03:30] VITALS: BP 92/57; PULSE 75; RESP 16; TEMP 36.9; O2SAT 97
[2025-03-04] MEDS: METHYLERGONOVINE MALEATE 0.2 MG TABLET PO ×2 (05:58→14:06)
[2025-03-04 06:28] LABS: Hemoglobin* 10.5 gm/dL (12.0-16.0)
[2025-03-04] MEDS: IBUPROFEN 600 MG TABLET PO ×2 (07:32→14:06)
--- NOTE | 2025-03-04 07:46 | PM.OBPNVD1 ---
OB - PN:Subj Subjective Date Seen: 03/04/25 Narrative: Swathi is a 34 y.o. who was admitted to L & D for IOL. ?She had an uncomplicated NVD/waterbirth.?The patient feels well. ?The pain is well controlled with current medications. ?She has no new complaints. ?She is breast feeding and reports things are going ok so far. baby has latched a few times. Is currently trying to feed, but baby is sleepy. ? the patient has done well.? Vitals have been stable.? She has remained afebrile.? Has a good appetite, is tolerating a general diet. ?She is voiding without difficulty.? She is ambulating and denies any dizziness.? Has normal amount of rubra lochia. ?she has a h/o PPH, but thus far her bleeding is normal. She is unsure if she is wanting to go home today. She will see how it goes. This provider will check back later if she is desiring d/c today. Otherwise, plans to rest, and not expecting a lot of company today. OB - PN: Obj Exam Physical Exam: Vital signs: Temp Pulse Resp BP Pulse Ox O2 Del Method 98.4 F 75 16 92/57 L 97 Room Air 03/04/25 03:30 03/04/25 03:30 03/04/25 03:30 03/04/25 03:30 03/04/25 03:30 03/04/25 03:30 Narrative: GENERAL APPEARANCE:? normal affect, alert, no distress MOOD:? appropriate CHEST:? clear to auscultation HEART:? regular rate and rhythm ABDOMEN:? soft, non-tender the uterine fundus is firm. Midline and is appropriate for the stage of recovery. PERINEUM:? mild edema of the perineum, there is no Perineal Laceration. EXTREMITIES:? normal and trace ble edema OB - PN: Obj Data Labs Labs: Laboratory Results - last 24 hr 03/03/25 03/04/25 08:01 06:07 WBC 7.99 RBC 3.84 L Hgb 10.5 L 10.5 L Hct 32.7 L MCV 85 MCH 27 MCHC 32 RDW Coeff of Rk 13.5 Plt Count 146 Neut % (Auto) 61.2 Lymph % (Auto) 23.4 [place] % (Auto) 13.0 H Eos % (Auto) 0.6 Baso % (Auto) 0.5 Neut # (Auto) 4.89 Lymph # (Auto) 1.87 [place] # (Auto) 1.00 H Eos # (Auto) 0.05 Baso # (Auto) 0.04 Abs Immat Gran (auto) 0.10 Imm/Tot Granulo (auto) 1.3 Blood Type O Positive Antibody Screen NEGATIVE OB - PN: A/P Delivery Assessment and Plan (1) : Status: Acute (2) Encounter for elective induction of labor: Status: Acute (3) Obesity (BMI 30-39.9): Status: Acute (4) care and examination immediately after delivery: Status: Acute (5) Lactating mother: Status: Acute Plan .ppplan Plan day: 1 Plan: routine care Comments: Anticipate d/c tomorrow, unless she feels up to d/c later this evening. May see counselor if desires.
[2025-03-04 08:30] VITALS: BP 104/68; PULSE 80; RESP 16; TEMP 36.7; O2SAT 97
[2025-03-04] MEDS: DOCUSATE SODIUM 100 MG CAPSULE PO (08:39)
[2025-03-04 11:30] VITALS: BP 106/70; PULSE 82; RESP 16; TEMP 36.7; O2SAT 97
[2025-03-04 16:00] VITALS: BP 111/73; PULSE 85; RESP 16; TEMP 36.9; O2SAT 97
[2025-03-04 19:48] VITALS: BP 111/68; PULSE 85; RESP 18; TEMP 36.8; O2SAT 97
[2025-03-05 00:58] VITALS: BP 110/70; PULSE 85; RESP 17; TEMP 36.4
[2025-03-05] MEDS: IBUPROFEN 600 MG TABLET PO (01:03)
[2025-03-05 07:30] VITALS: BP 100/65; PULSE 78; RESP 16; TEMP 36.7; O2SAT 96
--- NOTE | 2025-03-05 08:47 | PM.OBDSVD1 ---
DS: Providers Provider Date Seen: 03/05/25 Date of admission: 03/03/25 07:23 Primary care physician: Destini Bah CNP Admitting Clinician: Megan Ayala CNM Attending Physician on discharge: Blake Chawla CNM Date of Discharge: 03/05/25 DS: Diagnosis Discharge Diagnosis (1) care and examination immediately after delivery: Status: Acute (2) Lactating mother: Status: Acute Exam Narrative: Exam Narrative: VSS, afebrile GENERAL APPEARANCE: ?normal affect, alert, no distress MOOD: ?appropriate HEENT: normocephalic, neck supple, full ROM CHEST: ?Symmetrical chest wall movement. ?Normal respiratory effort. ?Clear to auscultation HEART: ?regular rate and rhythm ABDOMEN: ?soft, non-tender. Uterine fundus is firm, at Umbilicus, Midline and is appropriate for the stage of recovery. ?Bowel sounds present. PERINEUM: ?mild edema of the perineum, intact EXTREMITIES: ?normal and trace edema Const: Vital Signs, click to edit/add: Vital Signs - 24 hr 03/04/25 11:30 03/04/25 16:00 03/04/25 19:48 Temperature 98.1 F 98.4 F 98.2 F Pulse Rate [Pulse Oximeter] 82 85 85 Respiratory Rate 16 16 18 Blood Pressure [Ri ght Arm] 106/70 111/73 111/68 Pulse Oximetry 97 97 97 Oxygen Delivery Me thod Room Air Room Air Room Air 03/05/25 00:58 03/05/25 07:30 Temperature 97.6 F 98.1 F Pulse Rate [Pulse Oximeter] 85 78 Respiratory Rate 17 16 Blood Pressure [Ri ght Arm] 110/70 100/65 Pulse Oximetry 96 Oxygen Delivery Me thod Room Air Room Air Documenting provider has reviewed patient's vital signs: yes OB - DS: Summary Hospital Course Hospital Course: Oliva is a 34 y.o. who was admitted to L & D for induction of labor. ?She had an uncomplicated NVD.?The patient feels well. ?The pain is well controlled with current medications. ?She has no new complaints. ?She is breast feeding and reports things are going well.? the patient has done well.? Vitals have been stable.? She has remained afebrile.? Has a good appetite, is tolerating a general diet. ?She is voiding without difficulty.? She is passing gas and has not had a bowel movement.? She is ambulating and denies any dizziness.? Has Small amount of rubra lochia. ?She is undecided on her plan for prevention. Peripartum Data delivery method: Vaginal Laceration description: None complications: none Gender: Male Discharge Plan: Home Status at Discharge Functional status at discharge: independent ambulation Overall status at discharge: patient is progressing back to baseline Time Spent with Patient Time attestation: Total time spent providing and/or coordinating discharge services: Time spent: Less than 30 minutes Discharge Plan Discharge Disposition: Home, Self-Care Date of Admission: 03/03/25 07:23 Attending Provider on Discharge: Blake Chawla Primary Care Provider: Destini Bah Condition: Stable Anticipated Discharge Date/Time: 03/05/25 12:00 Discharge Medications: New docusate sodium 100 mg Capsule 100 mg PO DAILY Qty: 60 0RF ibuprofen 600 mg Tablet 600 mg PO Q6H PRNQty: 90 0RF acetaminophen 500 mg Tablet 1,000 mg PO Q6H PRNQty: 0 0RF Continued DHA 200 mg capsule 200 mg PO DAILY Discharge Orders: Discharge Order (Routine); Ordered 03/05/25 Ordered By: Blake Chawla Patient Education: OB Over the Counter Medication Information, OB Vaginal/Breast Feeding Additional Instructions: Discharge instructions were reviewed with the patient including signs and symptoms of infection and home going medications Nothing vaginally for 6 weeks: no tampons or intercourse Off Work or School for 6 weeks 2-week visit: discuss feeding concerns, review control options and screen for anxiety/depression. 6-week visit for an annual exam. consultation services are available to all mothers and babies for the first year after delivery.? To make an appointment, please call [phone]. Activity Level: Activity as Tolerated Discharge Diet: Regular Follow Up Appointments: Destini Bah, SOFT SUGAR CUTTER [Primary Care Provider, GOLD LEAF LAYER] [facility] [Provider Group] Forms: [employer] Info Instructions
== END 2025-03-05 10:58 | disposition home or self-care (01) | DRG 560 ==
PROVIDERS: Admitting Provider Midwife; PCP Registered Nurse; Visit Provider Midwife
DX: O99.824 Streptococcus B carrier state complicating childbirth (principal); O99.214 Obesity complicating childbirth; Z3A.39 39 weeks gestation of pregnancy; Z37.0 Single live birth
CPT/HCPCS: 36415; 85018; 85025; 86592; 86850; 86900; 86901; A9270; J0290; J7120

== ENCOUNTER 2025-03-12 22:02 | Emergency (ER) | payer BC, SELFPAY ==
--- OUTSIDE RECORDS SUMMARY | 2025-03-12 22:05 | XMS_ITS | Clinical Summary ---
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 Gender Identity Not on file Sexual Orientation [...] (once per calendar year) 2024 INFLUENZA VACCINE (#1) 2025 ZOSTER VACCINE (1 of 2) 2042 HIV SCREENING Completed 11/13/2013 HPV VACCINE (No Doses Required) Completed MENINGITIS VACCINE Aged Out No longer eligible [...] screen (12/07/2013 12:00 AM CDT) PAP SAM COPELSY Copath Report Patient Name: ABI GUAMAN MR#: [id number] Specimen #: [id number] Collected: 12/07/2013 Received: 12/10/2013 Reported: 12/11/2013 11:40 [...] DWAYNE Childs (ASCP) Processed and screened at [facility] CLINICAL HISTORY: LMP: 09/19/13 , Papanicolaou Test Limitations: Cervical cytology is a screening test with limited sensitivity; regular screening is critical for cancer prevention; Pap tests are primarily effective for the diagnosis/preventi on of squamous cell carcinoma, not adenocarcinomas or other cancers. TESTING LAB LOCATION: [address] [id number] COLLECTION SITE: Client: [facility] Location: [facility] (R) Cytologic material (specimen) 12/07/2013 12/10/2013 10:41 AM CDT us Herbie Jenkins MD LAB - OPTIME CLINICAL SPECI MEN Final Result COPATH * HIV Antigen Antibody Combo (11/13/2013 11:57 AM CDT) HIV Antigen Antibody Combo Nonreactive HIV-1 p24 Ag & HIV-1/HIV-2 Ab Not Detected NR [facility] Blood specimen (specimen) 11/13/2013 11:57 AM CDT 11/13/2013 12:02 PM CDT us Herbie Jenkins MD LAB - BLOOD ORDERABLES Tiffany l Result Performing Organization Address City/[facility]/ZIP Co de Phone Number [facility] [address] [place] [address] from Last 3 Months or Most Recently Relevant to Health Maintenance Insurance [facility] Advance Directives For more information, please contact: [phone] * Full Code (Latest Code Status on File) Date Activated Date Inactivated Comments 09/24/2014 3:44 AM 09/24/2014 4:12 PM Care Teams Programming Internship Relationship Specialty Start Date End Date No Ref-Primary, Physician PCP - General 04/14/22 No Ref-Primary, Physician 04/14/22
--- OUTSIDE RECORDS SUMMARY | 2025-03-12 22:06 | XMS_ITS | Clinical Summary ---
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
--- OUTSIDE RECORDS SUMMARY | 2025-03-12 22:06 | XMS_ITS | Clinical Summary ---
Author Organization [facility] Address [address] [place] [address] Care Team Providers Care Die Keeper Name Role Phone Pcp, No Primary Care [...] age 21-65 09/11/2024 2, 09/11/2021 Influenza Vaccine (#1) 2025 Pneumococcal series for age 6-49 Aged Out No longer eligible b ased on patient's age to complete this topic Procedures Procedure Name Priority Date/Time Associated Diagnosis Comments AIRCRAFT STRUCTURAL FITTER THIN PREP PAP SCREEN IMAGED Routine 09/11/2021 4:00 PM ENGRAVER STEEL PLATE from Last 3 Months or Most Recently Relevant to Health Maintenance Results * AIRCRAFT STRUCTURAL FITTER THIN PREP PAP SCREEN IMAGED (09/11/2021 4:00 PM ENGRAVER STEEL PLATE) Case Report Gynecologic Cytology Report Case: [id number] Authorizing Provider: Destini Bah NP Collected: 09/11/2021 1600 Ordering Location: [facility] Received: 09/15/2021 0803 First Screen: Karen Gongora Specimen: AIRCRAFT STRUCTURAL FITTER ThinPrep Vial Screening, Cervical/Vaginal 09/21/2021 12:58 PM ENGRAVER STEEL PLATE [facility] INTERPRETATION/ RESULT NEGATIVE FOR INTRAEPITHELIAL LESION OR MALIGNANCY (NIL) (none) 09/21/2021 12:58 PM ENGRAVER STEEL PLATE [facility] at 1258 ENGRAVER STEEL PLATE ORGANISM(S) Shift in billie suggestive of bacterial vaginosis 09/21/2021 12:58 PM ENGRAVER STEEL PLATE [facility] SPECIMEN ADEQUACY Satisfactory for evaluation No endocervical component seen in a patient 09/21/2021 12:58 PM ENGRAVER STEEL PLATE [facility] HPV REQUEST HPV and PAP 09/21/2021 12:58 PM ENGRAVER STEEL PLATE [facility] Date of LMP 09/21/2021 12:58 PM ENGRAVER STEEL PLATE [facility] Comment:Unknown Last Pap Date 09/21/2021 12:58 PM ENGRAVER STEEL PLATE [facility] Comment:Unknown Menstrual Status 09/21/2021 12:58 PM ENGRAVER STEEL PLATE [facility] Additional Information 09/21/2021 12:58 PM ENGRAVER STEEL PLATE [facility] Comment: Interpreted at [facility] Laboratory - [address], [place] [address] Automated Review Successful 09/21/2021 12:58 PM ENGRAVER STEEL PLATE [facility] Comment:Specimen processed s uccessfully by automated heel sander device, ThinPrep Imaging System, [employer] ANCILLARY TESTING AIRCRAFT STRUCTURAL FITTER HPV Ordered, Please see separate report 09/21/2021 12:58 PM ENGRAVER STEEL PLATE [facility] Note The pap test is a screening technique, not a diagnostic procedure. It is used primarily to screen for squamous cancers and precursor lesions. Published studies have shown that it is subject to both false negative and false positive results. The pap test should not be used as the sole means to diagnose or exclude pre-malignant and malignant lesions. 09/21/2021 12:58 PM ENGRAVER STEEL PLATE [facility] Other (Cervical/Vagina l) 09/11/2021 4:00 PM ENGRAVER STEEL PLATE 09/15/2021 8:03 AM ENGRAVER STEEL PLATE Destini Bah NP PATHOLOGY/CYTOLOGY Final Result [facility] [address] [place] [address], from Last 3 Months or Most Recently Relevant to Health Maintenance Insurance [facility] Care Teams Die Keeper Relationship Specialty Start Date End Date Pcp, No . PCP - General 10/24/13
[2025-03-12 22:09] VITALS: BP 119/83; PULSE 72; RESP 16; TEMP 36.7; O2SAT 97; BMI 41.8
--- NOTE | 2025-03-12 22:48 | ED.GENADULT ---
HPI - General Adult General Time Seen by Provider: 22:48 Date Seen: 03/12/25 Chief complaint: Post OB/Post- Complication Stated complaint: passed blood clot in urine Time Seen by Provider: 03/12/25 22:48 Source: patient Mode of arrival: ambulatory History of Present Illness HPI narrative: Swathi is a 34 yo female status post normal spontaneous vaginal delivery on 03/03/2025 who presents the emergency department for evaluation of vaginal bleeding. Patient reports that since delivery she has had some light spotting however tonight reports she passes a large blood clot. Patient states that she called ob/gyn doctor who recommended a common for evaluation. Patient denies any fever, chills, nausea, vomiting, abdominal pain, dysuria, pelvic pain, no follow smelling discharge, no other complaints. Related Data Home Medications ?Medication ?Instructions ?Recorded ?Confirmed No Known Home Medications 03/12/25 03/12/25 Allergies Allergy/AdvReac Type Severity Reaction Status Date / Time No Known Drug Allergies Allergy Verified 02/27/25 11:14 Review of Systems Narrative: Past medical history, past surgical history, medications, allergies, family history, and social history were reviewed with the patient. No additional pertinent items. A medically appropriate review of systems was performed with pertinent positives and negatives noted in HPI, all other systems negative. PFSH PFSH Medical History Precipitous delivery ?O62.3 - Precipitate labor (ICD-10) hemorrhage ?O72.1 - Other immediate hemorrhage (ICD-10) Surgical History History of hip surgery ?Z98.890 - Other specified postprocedural states (ICD-10) Family History (Updated 02/20/25 @ 11:08 by Megan Ayala CNM) Father Kidney carcinoma Stroke Paternal Grandmother Diabetes Mother Hyperthyroidism Social History (Updated 02/20/25 @ 11:06 by Megan Ayala CNM) What is your current living situation?: I presently have a place to live Problems where you live: no known problems In the past 12 months, utilities in danger of being shut off: no In past 12 months, lack of transportation kept you from medical appts, meetings, work, or getting things needed for daily living: no In the past 12 mos, have been you worried that your food would run out before you had money to buy more?: never true In the past 12 mos, the food you bought just didn't last and you didn't have money to buy more?: never true Are you following a diet prescribed by a doctor: No Are you following a special diet: No Previous occupational history: Does not work outside the home Highest level of school completed/degree received: high school graduate Smoking Status: Never smoker Do you use any of these nicotine containing products: None How often does anyone, including family, friends and others, physically hurt you: never How often does anyone, including family, friends and others, insult or talk down to you: never How often does anyone, including family, friends and others, threaten you with harm: never How often does anyone, including family, friends and others, scream or curse at you: never Exam Narrative: Exam Narrative: General: Afebrile, no acute distress HEENT: Normocephalic, atraumatic, conjunctiva normal. MMM Neck: non-tender, supple Cardio: regular rate. regular rhythm Resp: Normal work of breathing, no respiratory distress, lungs clear bilaterally, no wheezing, rhonchi, rales Chest/Back: no visual signs of trauma, no midline tenderness, no CVA tenderness Abdomen: soft, non distension, no tenderness, no peritoneal signs Neuro: alert and fully oriented. CN II-XII grossly intact. Grossly normal strength and sensation in all extremities. MSK: no deformities. Normal range of motion Integumentary/Skin: no rash visualized, normal color Psych: normal affect, normal behavior Const: Vital Signs, click to edit/add: Vital Signs - 24 hr 03/12/25 22:09 Temperature 98.1 F Pulse Rate [Pulse Oximeter] 72 Respiratory Rate 16 Blood Pressure [Ri ght Upper Arm] 119/83 Pulse Oximetry 97 Oxygen Delivery Me thod Room Air Course Vital Signs Vital signs: Initial Vital Signs Temperature 98.1 F 03/12/25 22:09 Temperature Source Temporal Artery Scan 03/12/25 22:09 Pulse Rate 72 03/12/25 22:09 Respiratory Rate 16 03/12/25 22:09 Blood Pressure 119/83 03/12/25 22:09 Blood Pressure Mean 95 03/12/25 22:09 Blood Pressure Position Sitting 03/12/25 22:09 Pulse Oximetry 97 03/12/25 22:09 Oxygen Delivery Method Room Air 03/12/25 22:09 Vital Signs Temperature 98.1 F 03/12/25 22:09 Pulse Rate 72 03/12/25 22:09 Respiratory Rate 16 03/12/25 22:09 Blood Pressure 119/83 03/12/25 22:09 Pulse Oximetry 97 03/12/25 22:09 Oxygen Delivery Method Room Air 03/12/25 22:09 Temperature 98.1 F 03/12/25 22:09 Pulse Rate 72 03/12/25 22:09 Respiratory Rate 16 03/12/25 22:09 Blood Pressure 119/83 03/12/25 22:09 Pulse Oximetry 97 03/12/25 22:09 Oxygen Delivery Method Room Air 03/12/25 22:09 Medical Decision Making MDM Narrative Medical decision making narrative: Swathi is a 34 yo female status post normal spontaneous vaginal delivery on 03/03/2025 who presents the emergency department for evaluation of vaginal bleeding. Upon arrival patient is nontoxic appearing, afebrile, no distress. Patient hemodynamically stable vital signs within normal limits. I discussed with patient, suspect likely normal vaginal bleeding after however given large amount of clot, ultrasound was performed to rule out retained products of conception. I personally reviewed and interpreted pelvic ultrasound which demonstrates complex appearing endometrial fluid without vascularity favored to represent blood products. On re-evaluation patient continues to resting comfortably, no distress. I discussed results with patient. At this time I think it is reasonable to discharge with continued close monitoring of symptoms, close outpatient follow-up with her OBGYN, strict return precautions discussed if high fever, severe abdominal pain, foul-smelling vaginal discharge, persistent heavy bleeding, worsening symptoms. Patient understands and agrees with the plan. Medical Records Medical records reviewed: Yes I reviewed the patient's medical records Discharge Plan Discharge Clinical Impression: Vaginal bleeding, state Patient Disposition: Home, Self-Care Condition: Stable Additional Instructions: Please follow-up with your OBGYN in the next 3-5 days for further evaluation and follow-up. Please call to schedule appointment. Please continue to monitor your symptoms and your bleeding. You will most likely have some ongoing bleeding and clots. Please return to the emergency department if he develops high fever, severe abdominal pain, persistent heavy vaginal bleeding, follow smelling discharge, or any worsening symptoms. It was a pleasure taking care of you today. We hope you feel better soon. Prescriptions: No Action No Known Home Medications Follow Up/Referrals: eDstini Bah, EQUINE SCIENCE INSTRUCTOR [Primary Care Provider, PLOW MECHANIC] Stand Alone Forms: [employer] Info Instructions
--- NOTE | 2025-03-12 22:59 | CRLHL7_ITS ---
For Patients: As a result of the Century Cures Act, medical imaging exams and procedure reports are released immediately into your electronic medical record. You may view this report before your referring provider. If you have questions, please contact your health care provider. INDICATION: Vaginal bleeding. Concern for retained products of conception. TECHNIQUE: Ultrasound pelvis transabdominal and transvaginal for better assessment or to better visualize the endometrium. Real-time sonographic images with spectral and color Doppler imaging of the ovaries were obtained. COMPARISON: None. FINDINGS: Uterus: 14.8 x 7.5 x 9.2 cm. Normal echotexture of the myometrium. No masses. Endometrium: Transvaginal imaging was performed to better evaluate the endometrium. Endometrial thickness measures 2 mm. Complex appearing endometrial fluid without vascularity, favored to represent blood products. Right ovary measures 3.5 x 2.1 x 2.5 centimeters. Left ovary is not visualized. Cul-de-sac: No significant free fluid. IMPRESSION: Complex appearing endometrial fluid without vascularity, favored to represent blood products. If symptomatology persists, consider direct visualization. Dictated by Jeancarlos Jarrett MD @ 03/12/2025 11:55:37 PM (Electronically Signed)
== END 2025-03-13 00:20 | disposition home or self-care (01) ==
PROVIDERS: Emergency Provider Emergency Medicine; PCP Registered Nurse
DX: O72.1 Other immediate postpartum hemorrhage (principal)
CPT/HCPCS: 76830; 99282; 99283; 99285

== ENCOUNTER 2025-04-21 15:29 | Emergency (ER) | payer BC, SELFPAY ==
--- OUTSIDE RECORDS SUMMARY | 2025-04-21 15:31 | XMS_ITS | Clinical Summary ---
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, [facility] CLINICAL HISTORY: LMP: 09/19/13 , Papanicolaou Test Limitations: Cervical cytology is a screening test with limited sensitivity; regular screening is critical for cancer prevention; Pap tests are primarily effective for the diagnosis/preventi on of squamous cell carcinoma, not adenocarcinomas or other cancers. TESTING LAB LOCATION: [address] [id number] COLLECTION SITE: Client: [facility] Location: [facility] CHO (R) Cytologic material (specimen) 12/07/2013 12/10/2013 10:41 AM CDT us Herbie Jenkins MD LAB - OPTIME CLINICAL SPECI MEN Final Result COPATH * HIV Antigen Antibody Combo (11/13/2013 11:57 AM CDT) HIV Antigen Antibody Combo Nonreactive HIV-1 p24 Ag & HIV-1/HIV-2 Ab Not Detected NR [facility] Blood specimen (specimen) 11/13/2013 11:57 AM CDT 11/13/2013 12:02 PM CDT us Herbie Jenkins MD LAB - BLOOD ORDERABLES Tiffany l Result Performing Organization Address City/[facility]/ZIP Co de Phone Number [facility] [address] [place] [address] from Last 3 Months or Most Recently Relevant to Health Maintenance Insurance [facility] Advance Directives For more information, please contact: [phone] * Full Code (Latest Code Status on File) Date Activated Date Inactivated Comments 09/24/2014 3:44 AM 09/24/2014 4:12 PM Care Teams Senior Devops Engineer Relationship Specialty Start Date End Date No Ref-Primary, Physician PCP - General 04/14/22 No Ref-Primary, Physician 04/14/22
--- OUTSIDE RECORDS SUMMARY | 2025-04-21 15:31 | XMS_ITS | Clinical Summary ---
Author Organization [facility] Address [address] [place] [address] Care Team Providers Care Orthodontic Band Maker Name Role Phone Unavailable Primary Care Provider Unavailabl e Source Comments You are receiving this document as you are listed as the primary care provider,follow-up provider, or the patient has been referred to you for consultation.This is in compliance with the Medicare and[facility] EHR Incentive Program,which states Providers who [...] on file Legal Sex Female 10:50 AM WARRANT CLERK Gender Identity Not on file Sexual Orientation Not on file Last Filed Vital Signs Vital Sign Reading Time Taken Comments Blood Pressure 114/64 09/12/2018 10:08 AM WARRANT CLERK Pulse 65 09/12/2018 10:08 AM WARRANT CLERK Temperature - - Respiratory Rate - - [...] - Tdap) 11/22/2011 HepB Vaccine (1) 11/22/2011 HPV Vaccine (1 - 3-dose SCDM series) 11/22/2019 COVID-19 Vaccine (1 - 2023-2 5 season) 2025 Influenza Vaccine (#1) 2025 Zoster/Shingles Vaccine (1 of 2) 2042 HepA Vaccine Aged Out No longer eligi [...]
--- OUTSIDE RECORDS SUMMARY | 2025-04-21 15:31 | XMS_ITS | Clinical Summary ---
Author Organization [employer] Address [address] [place] [id number] Care Team Providers Care Zinc Plate Grainer Name Role Phone Pcp, No Primary Care [...] Depression screening for age 12+ 05/10/2017 05/10/2016 HPV series for age 9-45 (1 - 3-dose SCDM series) 11/22/2019 Pap test for age 21-65 09/11/2024 2, 09/11/2021 COVID-19 vaccine series ( - 2023- season) 2025 Influenza Vaccine (#1) 2025 RSV vaccine for adults or (1 - 1-dose 75+ series) 11/22/2067 Pneumococcal series for age 6-49 Aged Out No longer eligible b ased on patient's age to complete this topic Procedures Procedure Name Priority Date/Time Associated Diagnosis Comments SAMPLE DRILLER THIN PREP PAP SCREEN IMAGED Routine 09/11/2021 4:00 PM GAS CONTROLLER from Last 3 Months or Most Recently Relevant to Health Maintenance Results * SAMPLE DRILLER THIN PREP PAP SCREEN IMAGED (09/11/2021 4:00 PM GAS CONTROLLER) Case Report Gynecologic Cytology Report Case: [id number] Authorizing Provider: Destini Bah NP Collected: 09/11/2021 1600 Ordering Location: [facility] Received: 09/15/2021 0803 First Screen: Karen Gongora Specimen: SAMPLE DRILLER ThinPrep Vial Screening, Cervical/Vaginal 09/21/2021 12:58 PM GAS CONTROLLER [facility] Explain My Surgery [facility] INTERPRETATION/ RESULT NEGATIVE FOR INTRAEPITHELIAL LESION OR MALIGNANCY (NIL) (none) 09/21/2021 12:58 PM GAS CONTROLLER [facility] at 1258 GAS CONTROLLER ORGANISM(S) Shift in billie suggestive of bacterial vaginosis 09/21/2021 12:58 PM GAS CONTROLLER [facility] Explain My Surgery [facility] SPECIMEN ADEQUACY Satisfactory for evaluation No endocervical component seen in a patient 09/21/2021 12:58 PM GAS CONTROLLER [facility] HPV REQUEST HPV and PAP 09/21/2021 12:58 PM GAS CONTROLLER [facility] Date of LMP 09/21/2021 12:58 PM GAS CONTROLLER [facility] Explain My Surgery [facility] Comment:Unknown Last Pap Date 09/21/2021 12:58 PM GAS CONTROLLER [facility] Comment:Unknown Menstrual Status 09/21/2021 12:58 PM GAS CONTROLLER [facility] Additional Information 09/21/2021 12:58 PM GAS CONTROLLER [facility] Comment: Interpreted at [facility] Central Laboratory - [address] [address] Automated Review Successful 09/21/2021 12:58 PM GAS CONTROLLER [facility] Comment:Specimen processed s uccessfully by automated color maker device, ThinPrep Imaging System, [employer] ANCILLARY TESTING SAMPLE DRILLER HPV Ordered, Please see separate report 09/21/2021 12:58 PM GAS CONTROLLER [facility] Note The pap test is a screening technique, not a diagnostic procedure. It is used primarily to screen for squamous cancers and precursor lesions. Published studies have shown that it is subject to both false negative and false positive results. The pap test should not be used as the sole means to diagnose or exclude pre-malignant and malignant lesions. 09/21/2021 12:58 PM GAS CONTROLLER [facility] Explain My Surgery [facility] Other (Cervical/Vagina l) 09/11/2021 4:00 PM GAS CONTROLLER 09/15/2021 8:03 AM GAS CONTROLLER us Destini Bah NP PATHOLOGY/CYTOLOGY Final Result [facility] [address] [place] [address], [place] from Last 3 Months or Most Recently Relevant to Health Maintenance Insurance [facility] Care Teams Zinc Plate Grainer Relationship Specialty Start Date End Date Pcp, No . PCP - General 10/24/13
[2025-04-21 15:52] VITALS: BP 115/79; PULSE 73; RESP 16; TEMP 36.6; O2SAT 97; BMI 41.9
[2025-04-21 16:08] LABS: Appearance Urine Clear (Clear)
--- NOTE | 2025-04-21 16:11 | CRLHL7_ITS ---
For Patients: As a result of the Century Cures Act, medical imaging exams and procedure reports are released immediately into your electronic medical record. You may view this report before your referring provider. If you have questions, please contact your health care provider. INDICATION: Left-sided flank pain. Urolithiasis. TECHNIQUE: CT abdomen and pelvis without contrast, stone protocol. COMPARISON: None. FINDINGS: Kidney/ureters/bladder: There are 3 distinct stones in the area of the right ureterovesical junction with the largest stone measuring 8 mm. A 6 mm stone is at the left ureterovesical junction. No other ureteral stones. Multiple stones remain in each kidney. There is marked right renal hydronephrosis and mild left renal hydronephrosis. Unremarkable bladder. Liver/gallbladder/bile ducts: The liver is normal in size, shape and attenuation. Gallbladder is normal without visualized stones or inflammation. No biliary dilatation. Spleen/pancreas/adrenal glands: The spleen, adrenal glands and pancreas are within normal limits. GI tract: The bowel is unremarkable. Normal appendix. Abdominal wall/omentum/peritoneum: No free air or significant free fluid. No mass or inflammation. Lymph nodes: No lymphadenopathy. Pelvis: Unremarkable pelvis. Lower chest: Unremarkable. IMPRESSION: : Stones are present at the ureterovesical junctions bilaterally and multiple stones remain in each kidney. There is moderate to severe right renal hydronephrosis and moderate left renal hydronephrosis. Please note that all CT scans at this facility use dose modulation, iterative reconstruction, and/or weight-based dosing when appropriate to reduce radiation dose to as low as reasonably achievable. Dictated by Obey Beth MD @ 04/21/2025 5:10:07 PM (Electronically Signed)
[2025-04-21 16:22] LABS: Ur HCG Qualitative* Negative (Negative)
[2025-04-21 16:22] LABS: Hematocrit* 38.4 % (33.0-51.0); Hemoglobin* 12.2 gm/dL (12.0-16.0); Immature Granulocytes Abs Auto 0.02 K/uL (0.00-0.30); Immature Granulocytes Pct Auto 0.3 %; Lymphocytes Absolute Auto 2.27 K/uL (0.90-2.90); Mean Corpuscular HGB Conc 32 gm/dL (32-36); Mean Corpuscular Hemoglobin 27 pg (26-34); Mean Corpuscular Volume 84 fL (80-100); RDW Coefficient of Variation % 14.5 % (11.5-15.5); Red Blood Count* 4.57 m/uL (4.00-5.20); Slide Review Reflex No; White Blood Count* 6.16 K/uL (4.50-11.00)
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
[2025-04-21 16:38] LABS: Albumin* 4.1 g/dL (3.3-5.0); Chloride* 111 mmol/L (96-114)
[2025-04-21 16:39] LABS: Potassium* 4.0 mmol/L (3.6-5.1); Sodium* 141 mmol/L (135-149)
[2025-04-21 16:41] LABS: Blood Urea Nitrogen* 18 mg/dL (5-24); Creatinine* 1.1 mg/dL (0.5-1.5); Est. Creatinine Clearance* 66.07; Estimated Glomerular Filt Rate 68 ml/min
[2025-04-21 16:42] LABS: Alanine Aminotransferase* 37 U/L (4-35); Alkaline Phosphatase* 74 U/L (40-150); Anion Gap 7 mEq/L (7-15); Aspartate Amino Transferase* 29 U/L (12-35); Bilirubin Direct* 0.2 mg/dL (0.0-0.5); Bilirubin Total* 0.5 mg/dL (0.1-1.5); Calcium* 8.7 mg/dL (8.4-10.6); Carbon Dioxide* 23 mmol/L (20-32); Glucose* 96 mg/dL (60-115); Total Protein* 7.1 g/dL (6.0-8.3)
[2025-04-21 16:58] LABS: Procalcitonin* 0.04 ng/mL (<0.50)
[2025-04-21 18:04] VITALS: BP 113/82; PULSE 55; RESP 16; O2SAT 97
[2025-04-21 19:00] VITALS: O2SAT 97
[2025-04-21 20:30] VITALS: BP 119/83; PULSE 67; RESP 16; TEMP 36.6; O2SAT 97
[2025-04-21 20:45] VITALS: BP 119/83; PULSE 67; RESP 16; TEMP 36.6
== END 2025-04-21 20:45 | disposition short-term general hospital (02) ==
PROVIDERS: Emergency Provider Family Medicine
DX: N13.5 Crossing vessel and stricture of ureter without hydronephrosis (principal)
CPT/HCPCS: 36415; 74176; 80048; 80076; 81001; 81025; 82150; 83690; 84145; 85025; 86140; 87086; 94761; 96374; 99284; 99285; J1885; J7030